=== PATIENT | female | born 1995 | race Asian ===

== ENCOUNTER 2020-05-03 17:23 | Emergency (ER) | payer OTHER ==
[~2020-05-03] VITALS: Ht 154.9 cm; Wt 54.4 kg
[2020-05-03 17:31] VITALS: BP_SYST 125
--- NOTE | 2020-05-03 17:31 | NUR ---
Patient to ER bed 08 to gown for evaluation. Side rails up.
--- NOTE | 2020-05-03 17:42 | NUR ---
Patient brought in complaining of right sided abdominal pain non radiating x 3 days with mild nausea . Pain 6/10. no other complaints/injuries per patient or as noted. Denies any vomiting or diarrhea.
[2020-05-03 18:07] LABS: BASOPHILS % (AUTO) 0.5 % (0.0-2.0); EOSINOPHILS # (AUTO) 0.1 K/uL (0.0-0.4); EOSINOPHILS % (AUTO) 1.1 % (0.0-4.0); HEMATOCRIT 36.9 % (36-48); HEMOGLOBIN 12.3 g/dL (12.0-16.0); LYMPHOCYTES # (AUTO) 1.9 K/uL (1.0-5.5); LYMPHOCYTES % (AUTO) 29.1 % (20.5-51.5); MEAN CORPUSCULAR HEMOGLOBIN 29 pg (27-31); MEAN CORPUSCULAR HGB CONC 33 % (32-36); MEAN CORPUSCULAR VOLUME 88 fL (79.0-98.0); MONOCYTES # (AUTO) 0.4 K/uL (0.0-1.0); MONOCYTES % (AUTO) 6.1 % (1.7-9.3); NEUTROPHILS # (AUTO) 4.2 K/uL (1.8-7.7); NEUTROPHILS % (AUTO) 63.2 % (40.0-70.0); PLATELET COUNT (AUTO) 259 K/uL (130-430); RED BLOOD CELL COUNT(AUTO) 4.21 MIL/uL (4.2-6.2); RED CELL DISTRIBUTION WIDTH 12.8 % (9.0-15.0); WHITE BLOOD COUNT (AUTO) 6.6 K/uL (4.8-10.8)
--- NOTE | 2020-05-03 18:13 | NUR ---
ER at bedside examining patient.
[2020-05-03 18:14] LABS: CALCIUM 8.9 mg/dL (8.4-11.0); CREATININE 0.69 mg/dL (0.55-1.30); POTASSIUM 3.4 mmol/L (3.5-5.1)
[2020-05-03] MEDS ORDERED: ONDANSETRON HCL 4 MG/2 ML VIAL IVP ONE (18:15)
[2020-05-03] MEDS ORDERED: MORPHINE 2 MG/ML INJ. SYRINGE IVP ONE ×2 (18:15→20:15)
[2020-05-03] MEDS ORDERED: NACL 0.9% 1,000 ML IV ONE (18:15)
[2020-05-03 18:19] LABS: ALBUMIN 3.4 g/dL (3.4-4.8); TOTAL BILIRUBIN 0.3 mg/dL (0.0-1.0)
[2020-05-03 18:26] LABS: BILIRUBIN,URINE NEGATIVE (NEGATIVE); BLOOD, URINE NEGATIVE (NEGATIVE); CLARITY/URINE CLEAR (CLEAR); COLOR,URINE YELLOW (YELLOW); GLUCOSE,URINE NEGATIVE (NEGATIVE); KETONES,URINE NEGATIVE (NEGATIVE); LEUKOCYTE ESTERASE ,URINE NEGATIVE (NEGATIVE); NITRITE, URINE NEGATIVE (NEGATIVE); PH,URINE 7.5 (5.0-8.0); PROTEIN URINE NEGATIVE (NEGATIVE); UROBILINOGEN,URINE 0.2 (0.2-1.0)
--- NOTE | 2020-05-03 18:30 | NUR ---
# 22 gauge angiocath placed to lfa. Use of asceptic technique. Opsite placed over site. Blood return noted. Flushed with 10 cc of normal saline. No evidence of infiltration noted. Patient tolerated well.
[2020-05-03 18:34] LABS: HCG,QUAL RESULT NEGATIVE (NEGATIVE)
[2020-05-03] MEDS ORDERED: KETOROLAC TROMETHAMINE 30 MG VIAL IVP ONE (18:45)
--- NOTE | 2020-05-03 18:49 | NUR ---
Medicated per MD orders. IVF infusing with no s/s of infiltration at this time. Will cont to monitor
[2020-05-03] MEDS ORDERED: KETOROLAC TROMETHAMINE 30 MG VIAL ONE (19:01)
--- NOTE | 2020-05-03 19:08 | NUR ---
received report from CLAUDIA Holder for continuation care.
--- NOTE | 2020-05-03 19:08 | NUR ---
[facility]ande do in [facility] - 05/03/20 at 1908 by [email or web address] received report from CLAUDIA Holder for continuation care.
--- NOTE | 2020-05-03 19:11 | NUR ---
received report from CLAUDIA Holder for continuation care.
[2020-05-03] MEDS ORDERED: metroNIDAZOLE 500 mg/NS 100 ML IV ONE (19:45)
[2020-05-03] MEDS ORDERED: CIPROFLOXACIN LACT 400 MG/D5W 200 ML IV ONE (19:45)
--- NOTE | 2020-05-03 19:55 | NUR ---
pt ambulated to restroom with steady gait.
--- NOTE | 2020-05-03 19:58 | NUR ---
lab at bedside drawing blood cultures.
--- NOTE | 2020-05-03 20:12 | NUR ---
Blood cultures drawn, prior to administration of antibiotic.
[2020-05-03] MEDS ORDERED: MORPHINE 4 MG/ML INJ. SYRINGE IVP ONE (20:45)
--- NOTE | 2020-05-03 20:51 | NUR ---
while administering morphine 4mg IVP patient started to feel stinging and upper arm and site around IV turned red. only half the dose ordered was administered. made aware. Benadryl 25mg IVP ordered.
[2020-05-03] MEDS ORDERED: DIPHENHYDRAMINE INJ 50 MG/ML VIAL IVP ONE (21:00)
--- NOTE | 2020-05-03 21:37 | NUR ---
PATIENT VITAL SIGNS STABLE. REDNESS FROM REACTION TO MORPHINE IS SUBSIDING.
--- NOTE | 2020-05-03 22:02 | NUR ---
ANTIBIOTIC ADMINISTRATION COMPLETED.
[2020-05-03 22:07] VITALS: BP_SYST 103
--- NOTE | 2020-05-03 22:07 | NUR ---
Patient given written and verbal discharge instructions and verbalizes understanding. ER MD discussed with patient the results and treatment provided. Patient in stable condition. ID arm band removed. IV catheter removed intact and dressing applied, no active bleeding. Rx of NORCO AND AUGMENTIN given. Patient educated on pain management and to follow up with PMD. Pain Scale 1/10. Opportunity for questions provided and answered. Medication side effect fact sheet provided.
== END 2020-05-03 22:07 | disposition home or self-care (01) ==
LOC: SED 17:23
DX: K57.92 Diverticulitis of intestine, part unspecified, without perforation or abscess without bleeding (principal); Z88.6 Allergy status to analgesic agent
CPT/HCPCS: 36415; 74150; 80053; 81003; 83690; 84703; 85025; 87040; 96361; 96365; 96368; 96375; 99285; J0744; J1200; J1885; J2270; J2405; J3490; J7030